=== PATIENT | male | born 1985 | race Caucasian/White ===

== ENCOUNTER 2019-02-08 23:07 | Emergency (ER) | payer OTHER ==
[~2019-02-08] VITALS: Ht 180.3 cm; Wt 99.8 kg
[~2019-02-08 23:07] MED LIST: FLEXERIL PO; IBUPROFEN 800800 MG PO; LEVOTHYROXINE 0.1 MG; NORCO 5-325 TA1 EACH PO; OMEPRAZOLE40 MG; ROBAXIN 750 MG750 M1
[2019-02-08] MEDS ORDERED: LEVO-T100 MCG PO (23:21)
[2019-02-08] MEDS ORDERED: PROTONIX40 M4 PO (23:21)
[2019-02-08] MEDS ORDERED: ADDERALL 30 MG30 MG PO (23:22)
[2019-02-09 00:33] LABS: ABSOLUTE BASOPHILS 0.1 thou/uL (0.0-0.2); ABSOLUTE EOSINOPHILS 0.1 thou/uL (0.0-0.7); ABSOLUTE LYMPHOCYTES 1.5 thou/uL (0.8-5.3); ABSOLUTE MONOCYTES 1.6 thou/uL (0.0-1.2); ABSOLUTE NEUTROPHILS 8.5 thou/uL (1.6-8.1); BASOPHILS 0.4 %; EOSINOPHILS 1.1 %; HEMATOCRIT 45.7 % (42.0-52.0); HEMOGLOBIN 16.3 gm/dL (14.0-18.0); LYMPHOCYTES 12.9 %; MCH 32.6 pg (26.0-34.0); MCHC 35.7 g/dL (28.0-37.0); MCV 91.3 fL (80.0-100.0); MONOCYTES 13.5 %; NUCLEATED RBCS 0 /100WBC; PLATELET COUNT* 260 thou/uL (150-400); POLYS 72.1 %; RBC 5.01 mil/uL (4.50-6.00); WBC 11.8 thou/uL (4.0-11.0)
[2019-02-09 00:44] LABS: CREATININE 0.9 mg/dL (0.6-1.3); POTASSIUM 3.6 mmol/L (3.5-5.1)
[2019-02-09 00:48] LABS: ALBUMIN 3.7 g/dL (3.4-5.0); TOTAL BILIRUBIN 0.9 mg/dL (<0.1-1.0); TOTAL PROTEIN 7.2 g/dL (6.4-8.2)
[2019-02-09] MEDS ORDERED: FLAGYL500 M1 PO (02:01)
[2019-02-09] MEDS ORDERED: HYDROCODON-ACE1 EAC7 PO (02:01)
[2019-02-09] MEDS ORDERED: CIPROFLOXACIN500 M1 PO (02:01)
[2019-02-09] MEDS ORDERED: ZOFRAN ODT4 MG PO (02:36)
[2019-02-09 02:40] VITALS: BP 145/86
== END 2019-02-09 02:40 | disposition home or self-care (01) ==
LOC: M.ERS 23:07
PROVIDERS: Personal Emergency Response Attendant
DX: K57.32 Diverticulitis of large intestine without perforation or abscess without bleeding (principal); E03.9 Hypothyroidism, unspecified; Z87.442 Personal history of urinary calculi